=== PATIENT | female | born 2000 | race Two or more races ===

== ENCOUNTER 2022-04-05 20:52 | Emergency (ER) | payer MEDICAID ==
[~2022-04-05] VITALS: Ht 162.6 cm; Wt 68.0 kg
[2022-04-05 21:03] VITALS: BP_SYST 153
--- NOTE | 2022-04-05 21:18 | NUR ---
Pt brought by self, A&Ox4, pt presents to ER with episode of anxiety, panic attacks, skin pink and warm,cap refill <3, VSS.
--- NOTE | 2022-04-05 23:30 | NUR ---
Placed in hallway
--- NOTE | 2022-04-05 23:33 | NUR ---
ER at bedside examining patient.
--- NOTE | 2022-04-05 23:35 | NUR ---
pt bp repeat. value at 133/85. rn and informed
[2022-04-05] MEDS ORDERED: VIS50 PO (23:44)
[2022-04-05] MEDS ORDERED: LORA-259 PO (23:44)
[2022-04-05] MEDS ORDERED: LORazepam 1 MG TABLET PO ONE (23:45)
--- NOTE | 2022-04-05 23:48 | NUR ---
Patient given written and verbal discharge instructions and verbalizes understanding. ER MD discussed with patient the results and treatment provided. Patient in stable condition. ID arm band removed. Rx of ativan and vistaril given. Patient educated on pain management and to follow up with PMD. Pain Scale 0/10 Opportunity for questions provided and answered. Medication side effect fact sheet provided.
[2022-04-06] MEDS ORDERED: VIS50 PO (00:25)
[2022-04-06] MEDS ORDERED: LORA-259 PO (00:25)
== END 2022-04-05 23:48 | disposition home or self-care (01) ==
LOC: SED 20:52 → EDSEX 20:52 → SED 23:48
DX: F41.1 Generalized anxiety disorder (principal); Z79.899 Other long term (current) drug therapy
CPT/HCPCS: 93005; 99283

== ENCOUNTER 2022-04-20 12:48 | Emergency (ER) | payer MEDICAID ==
[~2022-04-20] VITALS: Ht 162.6 cm; Wt 65.8 kg
[~2022-04-20 12:48] MED LIST: LORA-259 PO; VIS50 PO
[2022-04-20 13:10] VITALS: BP_SYST 120
[2022-04-20 16:14] LABS: BASOPHILS % (AUTO) 0.2 % (0.0-2.0); EOSINOPHILS # (AUTO) 0.1 K/uL (0.0-0.4); EOSINOPHILS % (AUTO) 0.7 % (0.0-4.0); HEMATOCRIT 36.1 % (36-48); LYMPHOCYTES # (AUTO) 1.3 K/uL (1.0-5.5); LYMPHOCYTES % (AUTO) 15.6 % (20.5-51.5); MEAN CORPUSCULAR HEMOGLOBIN 28 pg (27-31); MEAN CORPUSCULAR HGB CONC 33 % (32-36); MEAN CORPUSCULAR VOLUME 83 fL (79.0-98.0); MONOCYTES # (AUTO) 0.3 K/uL (0.0-1.0); MONOCYTES % (AUTO) 3.5 % (1.7-9.3); NEUTROPHILS # (AUTO) 6.9 K/uL (1.8-7.7); PLATELET COUNT (AUTO) 263 K/uL (130-430); RED BLOOD CELL COUNT(AUTO) 4.37 MIL/uL (4.2-6.2); RED CELL DISTRIBUTION WIDTH 13.4 % (9.0-15.0); WHITE BLOOD COUNT (AUTO) 8.6 K/uL (4.8-10.8)
[2022-04-20 16:32] LABS: ANION GAP 10 (5-15); CALCIUM 8.9 mg/dL (8.4-11.0); CHLORIDE 103 mmol/L (98-107); CREATININE 1.17 mg/dL (0.55-1.30); GLUCOSE 93 mg/dL (70-99); POTASSIUM 3.4 mmol/L (3.5-5.1); SODIUM SERUM 141 mmol/L (136-145); UREA NITROGEN, BLOOD 12 mg/dL (8-21)
[2022-04-20 16:38] LABS: GFR AFRICAN AMERICAN 73 mL/min (>90)
[2022-04-20 16:40] LABS: ALANINE AMINOTRANSFERASE 62 U/L (12-78); ALBUMIN 3.1 g/dL (3.4-4.8); ASPARTATE AMINOTRANSFERASE 33 U/L (10-37); TOTAL BILIRUBIN 0.4 mg/dL (0.0-1.0)
[2022-04-20] MEDS ORDERED: ALBU8.5H8 INH (17:14)
[2022-04-20] MEDS ORDERED: GUAI-723 PO (17:14)
[2022-04-20 18:58] VITALS: BP_SYST 120
== END 2022-04-20 18:58 | disposition home or self-care (01) ==
LOC: SED 12:48
DX: J40 Bronchitis, not specified as acute or chronic (principal); R06.02 Shortness of breath; Z79.899 Other long term (current) drug therapy; Z20.822 Contact with and (suspected) exposure to COVID-19
CPT/HCPCS: 36415; 71045; 80053; 81025; 84484; 84702; 85025; 85379; 93005; 99285